=== PATIENT | male | born 1985 | race Hispanic/Latino ===

== ENCOUNTER 2025-06-16 17:10 | Emergency (ER) | payer OTHER, MEDICARE ==
[~2025-06-16] VITALS: Ht 157.5 cm; Wt 203.2 kg
[2025-06-16 17:35] LABS: IMMATURE GRANULOCYTE ABSOLUTE 0.03 K/uL (0-1); NUCLEATED RED BLOOD CELLS 0.0 % (0.0-0.19); PLATELET COUNT (AUTO) 171 K/uL (130-400); RED BLOOD CELL COUNT(AUTO) 5.45 MIL/uL (4.50-6.20); RED CELL DISTRIBUTION WIDTH 12.9 % (11.0-15.5); WHITE BLOOD COUNT (AUTO) 10.9 K/uL (4.8-10.8)
[2025-06-16 17:53] LABS: CREATINE KINASE, TOTAL 239.0 U/L (21-232); CREATININE 1.0 mg/dL (0.5-1.3); GLOMERULAR FILTR. RATE CALC 98.0 mL/min (>90); GLUCOSE,RANDOM 393.0 mg/dL (70-105); SODIUM SERUM 133.0 mmol/L (136-145); UREA NITROGEN, BLOOD 9.0 mg/dL (7-18)
[2025-06-16 18:54] LABS: ASPARTATE AMINOTRANSFERASE 25.0 U/L (10-37); TOTAL PROTEIN, SERUM 7.4 g/dL (6.0-8.3)
[2025-06-16] MEDS: 0.9%NACL 1000ML 1,638 ML IV ONE (18:57)
--- NOTE | 2025-06-16 19:12 | NUR ---
PT CARE ASSUMED AT THIS TIME
[2025-06-16] MEDS ORDERED: IOHEXOL 350 MG/ML 100ML INFUS..BTL IV ONE (19:19)
--- NOTE | 2025-06-16 20:05 | NUR ---
ALEJANDRA BIRD MADE AWARE OF BLOOD PRESSURE. PER TESTER/LIFT TRUCKER BLOOD PRESSURE MEDICATION IS TO BE HELD.
[2025-06-16 20:40] LABS: ADD UA MICROSCOPIC YES; APPEARANCE,URINE CLEAR (CLEAR); GLUCOSE, URINE (UA) >=1000 mg/dL (NEGATIVE); LEUKOCYTE ESTERASE ,URINE NEGATIVE Leu/uL (NEGATIVE); NITRATE,URINE NEGATIVE (NEGATIVE); OCCULT BLOOD,URINE NEGATIVE (NEGATIVE)
[2025-06-16 20:41] LABS: SQUAMOUS EPITHELIAL CELL,UR RARE /HPF (0-2)
[2025-06-16 20:43] LABS: AMPHET/METH SCREEN,URINE NEGATIVE (NEGATIVE); BARBITURATE SCREEN, URINE NEGATIVE (NEGATIVE); CANNABINOID SCREEN,URINE NEGATIVE (NEGATIVE); COCAINE SCREEN,URINE NEGATIVE (NEGATIVE)
--- NOTE | 2025-06-16 20:56 | HMCIMG ---
EXAM: CT Abdomen and Pelvis with IV contrast CLINICAL HISTORY: Right lower quadrant pain. TECHNIQUE: Postcontrast thin collimated axial CT images of the abdomen and pelvis were obtained with sagittal and coronal reformatted images also submitted. CT scan done according to ALARA (As Low As Reasonably Achievable). COMPARISON: None. FINDINGS: Unremarkable visualized lung parenchyma. There is no focal abnormality appreciated within the liver, gallbladder, pancreas, spleen, adrenals, or kidneys. Mild fatty liver. There is no obvious bowel wall thickening. Bowel loops are normal in caliber without evidence of obstruction or ileus. The appendix is normal. There is no abnormality within the urinary bladder. Unremarkable reproductive organs. The aorta is normal in caliber. No lymphadenopathy. No free fluid. There is a focal bony defect in the right iliac body. Mild multilevel spondylosis noted. Mild degenerative changes noted in the bilateral hip joints. IMPRESSIONS: There is a focal bony defect in the right iliac body; the evaluation is limited due to the patient's body habitus. Recommend a contrast-enhanced MRI of the pelvis for an optimal evaluation. Mild fatty liver. Unremarkable appendix. /[place]
--- NOTE | 2025-06-16 21:29 | NUR ---
BEDSIDE GLUCOSE CHECK DONE AT THIS TIME. ALEJANDRA BIRD MADE AWARE OF RESULT.
--- NOTE | 2025-06-16 21:46 | ERN ---
ED Note History of Present Illness Stated Complaint: LOWER ABD PAIN Chief Complaint: Abdominal Pain Time Seen by MD: 18:19 Time Seen by Midlevel: 18:19 Dictation: The patient is a 40-year-old male with a history of diabetes, hypertension who presents to the emergency department with complaints of lower abdominal pain onset yesterday around 2:00 a.m. patient denies any nausea or vomiting. Reports nonbloody diarrhea. Patient denies any fevers at home but had a low-grade fever in ER. Denies any upper respiratory symptoms. Allergies: Coded Allergies: Penicillins (Unverified Allergy, Unknown, 06/16/25) Past Medical History Past Medical History: Diabetes-Type II, High Cholesterol, Hypertension Surgical History: Other Surgical History Other: ABD SURGERY RN Note Reviewed/Agreed w/PFSH: Yes Review of System Dictation Constitutional: Negative for fever,chills, and weight loss Eyes: Negative for injury, pain,redness, and discharge ENT: Negative for injury,pain or swelling Cardiovascular: Negative for chest pain, palpitations, and edema Respiratory: Negative for shortness of breath, cough, and wheezing, Abdomen/GI: Negative for nausea, vomiting, and constipation positive for abdominal pain, diarrhea Back: Negative for injury and pain : Negative for injury, bleeding and discharge MS/Extremity: Negative for injury and deformity Skin: Negative for rash, and discoloration Neuro: Negative for headache, weakness, numbness, tingling, and seizure Psych: Negative for suicide ideation, homicidal ideation, and hallucinations Initial Vital Sign VS Vital Signs Date Time Temp Pulse Resp B/P (MAP) Pulse Ox O2 Delivery O2 Flow Rate FiO2 06/16/25 17:12 100.0 114 20 238/117 96 Room Air 0 06/16/25 18:13 21 Physical Exam Dictation Vital Signs reviewed General Appearance: Alert, oriented x 3, no acute distress, well developed, nourished. Obese Head and Face: non-traumatic. Eyes: PERRL, pink conjunctivas, eyelid no trauma, anterior chamber with arcus senilis. Ears: Pinnas intact and no signs of trauma or erythema ear canals clear and no discharge TM no erythema Nose: No discharge, no bleeding. Oropharynx: Mouth normal, tongue pink. pharynx clear,no erythema, tonsils no exudates, no abscesses noted, mucous membrane moist Neck: Supple, non-tender, no thyromegaly, no masses, no JVD, no bruits Breast:Deferred Chest:No tenderness, no crepitus, no paradoxical movement, no retractions Lungs:Clear, well-ventilated, symmetric, no rales, no wheezing, no rhonchi, no stridor, good breath sounds bilaterally Heart: Regular rate, regular rhythm, no murmur, no gallops Vascular: no peripheral edema, Abdomen: Soft, positive bowel sounds, nondistended, no guarding, Right lower quadrant tenderness, no rebound, no masses no hepatomegaly, no splenomegaly, no Ordoñez's sign, no hernias. Rectal: Deferred Genital: Deferred Neurological: Normal speech, motor function intact, sensory function intact Musculoskeletal: Neck nontender, full range of motion, back nontender, full range of motion, Extremities: nontender, full range of motion Skin: Color pink, dry, no turgor, no rash, no lacerations, no abrasions, no contusions. Lymphatic: Deferred Results (Laboratory/Radiology) Laboratory/Radiology Laboratory Tests Test 06/16/25 17:28 06/16/25 20:20 06/16/25 21:26 06/16/25 21:29 White Blood Count 10.9 K/uL (4.8-10.8) H Red Blood Count 5.45 MIL/uL (4.50-6.20) Hemoglobin 16.2 g/dL (14.0-18.0) Hematocrit 48.8 % (42-54) Mean Corpuscular Volume 89.5 fL (79-99) Mean Corpuscular Hemoglobin 29.7 pg (27.0-33.0) Mean Corpuscular Hemoglobin Concent 33.2 g/dL (32.0-36.0) Red Cell Distribution Width 12.9 % (11.0-15.5) Platelet Count 171 K/uL (130-400) Mean Platelet Volume 12.0 fL (7.5-10.5) H Immature Granulocyte % (Auto) 0.3 % (0-1) Neutrophils (%) (Auto) 75.4 % (40.0-77.0) Lymphocytes (%) (Auto) 14.5 % (21.0-51.0) L Monocytes (%) (Auto) 8.6 % (3.0-13.0) Eosinophils (%) (Auto) 0.7 % (0.0-8.0) Basophils (%) (Auto) 0.5 % (0.0-5.0) Neutrophils # (Auto) 8.3 K/uL (1.8-7.7) H Lymphocytes # (Auto) 1.6 K/uL (1.0-4.8) Monocytes # (Auto) 0.9 K/uL (0.1-1.0) Eosinophils # (Auto) 0.08 K/uL (0.00-0.70) Basophils # (Auto) 0.05 K/uL (0.00-0.20) Absolute Immature Granulocyte (auto 0.03 K/uL (0-1) Nucleated Red Blood Cells 0.0 % (0.0-0.19) Sodium Level 133 mmol/L (136-145) L Potassium Level 3.7 mmol/L (3.5-5.1) Chloride Level 96 mmol/L (101-111) L Carbon Dioxide Level 25 mmol/L (21-32) Blood Urea Nitrogen 9 mg/dL (7-18) Creatinine 1.0 mg/dL (0.5-1.3) Glomerular Filtration Rate Calc 98 mL/min (>90) Random Glucose 393 mg/dL (70-105) H Lactic Acid Level 2.6 mmol/L (0.8-2.5) H 1.9 mmol/L (0.8-2.5) Total Calcium 8.9 mg/dL (8.5-10.1) Total Bilirubin 0.6 mg/dL (0.2-1.0) Direct Bilirubin 0.2 mg/dL (0.0-0.3) Aspartate Amino Transf (AST/SGOT) 25 U/L (10-37) Alanine Aminotransferase (ALT/SGPT) 47 U/L (12-78) Alkaline Phosphatase 85 U/L (50-136) Total Creatine Kinase 239 U/L (21-232) H Troponin I High Sensitivity 21 ng/L (4-75) Total Protein 7.4 g/dL (6.0-8.3) Albumin 3.1 g/dL (3.5-5.0) L Lipase 23 U/L (16-77) Urine Color LIGHT-YELLOW (YELLOW) Urine Appearance CLEAR (CLEAR) Urine pH 5.5 (5.0-8.0) Urine Specific Craig 1.046 (1.001-1.031) Urine Protein NEGATIVE mg/dL (NEGATIVE) Urine Glucose (UA) >=1000 mg/dL (NEGATIVE) H Urine Ketones 20 mg/dL (NEGATIVE) H Urine Occult Blood NEGATIVE (NEGATIVE) Urine Nitrate NEGATIVE (NEGATIVE) Urine Bilirubin NEGATIVE mg/dL (NEGATIVE) Urine Urobilinogen 0.2 mg/dL (0.2-1.0) Urine Leukocyte Esterase NEGATIVE Gail/uL Urine RBC 0-1 /HPF (0-1) Urine WBC None /HPF (0-1) Urine Squamous Epithelial Cells RARE /HPF (0-2) Urine Bacteria None /HPF (None Seen) Urine Opiates Screen NEGATIVE (NEGATIVE) Urine Barbiturates Screen NEGATIVE (NEGATIVE) Urine Phencyclidine Screen NEGATIVE (NEGATIVE) Urine Amphetamines Screen NEGATIVE (NEGATIVE) Urine Benzodiazepines Screen NEGATIVE (NEGATIVE) Urine Cocaine Screen NEGATIVE (NEGATIVE) Urine Marijuana (THC) Screen NEGATIVE (NEGATIVE) Whole Blood Glucose 284 MG/DL (70-110) H REASON: rlq pain ORDERING PHYSICIAN: PELON MADRID PROCEDURE: ABD PEL W - CT ABDOMEN/PELVIS W/CONTRAST EXAM: CT Abdomen and Pelvis with IV contrast CLINICAL HISTORY: Right lower quadrant pain. TECHNIQUE: Postcontrast thin collimated axial CT images of the abdomen and pelvis were obtained with sagittal and coronal reformatted images also submitted. CT scan done according to ALARA (As Low As Reasonably Achievable). COMPARISON: None. FINDINGS: Unremarkable visualized lung parenchyma. There is no focal abnormality appreciated within the liver, gallbladder, pancreas, spleen, adrenals, or kidneys. Mild fatty liver. There is no obvious bowel wall thickening. Bowel loops are normal in caliber without evidence of obstruction or ileus. The appendix is normal. There is no abnormality within the urinary bladder. Unremarkable reproductive organs. The aorta is normal in caliber. No lymphadenopathy. No free fluid. There is a focal bony defect in the right iliac body. Mild multilevel spondylosis noted. Mild degenerative changes noted in the bilateral hip joints. IMPRESSIONS: There is a focal bony defect in the right iliac body; the evaluation is limited due to the patient's body habitus. Recommend a contrast-enhanced MRI of the pelvis for an optimal evaluation. Mild fatty liver. Unremarkable appendix. /[place] [facility] Reviewed?: Yes EKG: (+) rhythm (Sinus tachycardia) EKG Comment: Date:06/16/2025 Time:1715 Ventricular rate:114 MN interval:145 QRS duration:139 QT/QTc:363/500 EKG interpretation: Sinus tachycardia Reviewed by ED Attending no stemi ED Course ED Course Orders Procedure Category Date Status Time Iv Insertion CPOE 06/16/25 Transmitted 17:17 Pulse Ox(Continuous) RT 06/16/25 Transmitted 17:17 Vital Signs Per CPOE 06/16/25 Transmitted Routine 17:17 12 Lead Ekg Tracing- EKG 06/16/25 Logged Technical 17:17 Cbc With Differential LAB 06/16/25 Complete 17:17 Blood Cult LEO 06/16/25 In Process 17:17 Urinalysis Profile LAB 06/16/25 Complete 17:17 Culture Urine LEO 06/16/25 In Process 17:17 Creatine Kinase, Total LAB 06/16/25 Complete 17:17 Troponin I High LAB 06/16/25 Complete Sensitivity 17:17 Lactic Acid LAB 06/16/25 Complete 17:17 Basic Metabolic Panel LAB 06/16/25 Complete 17:17 12 Lead Ekg Tracing- EKG 06/16/25 Logged Technical 17:17 Ct Abdomen/Pelvis CT 06/16/25 Resulted W/Contrast 18:25 Lipase LAB 06/16/25 Complete 18:25 Acetaminophen 500mg PHA 06/16/25 Complete Tab (Tylenol 500mg T 18:30 0.9%Nacl 1000ml (Ns PHA 06/16/25 Complete 1000ml) 18:30 Ceftriaxone 1g Vial PHA 06/16/25 Complete (Rocephine 1g Inj) 18:30 Hepatic Function Panel LAB 06/16/25 Complete 18:25 Ondansetron 4mg Inj PHA 06/16/25 Complete (Zofran 4mg Inj) 18:30 Morphine 4mg Syg PHA 06/16/25 Complete (Morphine 4mg Syg) 18:30 Drug Screen Urine LAB 06/16/25 Complete 18:29 Hydralazine 20mg Inj PHA 06/16/25 Complete (Apresoline 20mg In 18:30 Iohexol (Omnipaque) PHA 06/16/25 Complete 19:19 Lactic Acid (Removed) LAB 06/16/25 Complete 20:40 Bedside Glucose CPOE 06/16/25 Transmitted Fingerstick 21:27 Current Medications Medications (Trade) Dose Ordered Sig/Darren Route PRN Reason Start Time Stop Time Status Last Admin Dose Admin Acetaminophen (TYLenol 500MG TAB) 1,000 mg ONCE ONCE PO 06/16/25 18:30 06/16/25 18:33 DC 06/16/25 18:56 Ceftriaxone Sodium (ROCEphine 1G INJ) 1 gm ONCE ONCE IVPB 06/16/25 18:30 06/16/25 18:46 DC 06/16/25 18:56 Hydralazine HCl (APRESOLine 20MG INJ) 10 mg ONCE ONCE IV 06/16/25 18:30 06/16/25 18:34 DC Iohexol (Omnipaque) 35,000 mg STK-MED ONCE IV 06/16/25 19:19 06/16/25 19:20 DC Morphine Sulfate (morPHINE 4MG SYG) 4 mg ONCE ONCE IVP 06/16/25 18:30 06/16/25 18:33 DC Ondansetron HCl (zoFRAN 4MG INJ) 4 mg ONCE ONCE IVP 06/16/25 18:30 06/16/25 18:33 DC Sodium Chloride 1,638 ml @ 546 mls/hr ONCE ONCE IV 06/16/25 18:30 06/16/25 21:29 DC 06/16/25 18:57 Vital Signs Date Time Temp Pulse Resp B/P (MAP) Pulse Ox O2 Delivery O2 Flow Rate FiO2 06/16/25 20:05 99.0 100 16 164/85 98 Room Air* 0 06/16/25 18:13 99.1 111 14 162/91 98 Room Air* 0 06/16/25 17:12 100.0 114 20 238/117 96 Room Air 0 Medical Decision Making MDM The patient is a 40-year-old male with a history of diabetes, hypertension who presents to the emergency department with complaints of lower abdominal pain onset yesterday around 2:00 a.m. patient denies any nausea or vomiting. Reports nonbloody diarrhea. Patient denies any fevers at home but had a low-grade fever in ER. Denies any upper respiratory symptoms. CBC showed mild leukocytosis, no anemia, chemistry showed mild hyponatremia, hypochloremia, elevated glucose level. No DKA, lactic acid of 2.6 negative lipase, negative troponin, negative liver enzymes. Blood glucose improved after fluids. Lactic acid trending down Toxicology negative, urinalysis negative for leukocyte esterase, nitrites. CT abdomen and pelvis showed no mouth fatty liver, unremarkable appendix, focal bony deficits of right iliac body. Patient with no pain, ambulatory. Patient reports no longer having any abdominal pain. On physical exam patient is in no acute distress, nontoxic appearance, stable vital signs. Patient will be discharged to follow up with PCP. Differential diagnosis: Appendicitis, gastroenteritis, dehydration, electrolyte imbalance, sepsis Need for hospitalization: Patient does not meet criteria for hospitalization. There are no social concerns with this patient. DX & DISP Disposition: Discharge Departure Impression: Primary Impression: Gastroenteritis Additional Impressions: Uncontrolled diabetes mellitus, Uncontrolled hypertension Condition: Stable Additional Instructions: Your labs were except your blood glucose was high in your slightly dehydrated. You received IV fluids. Your CT scan did not show any evidence of appendicitis. Your symptoms are probably related to a viral stomach infection. Tinea oral hydration at home. You may take Tylenol as needed or near fevers. Your primary doctor in 1-2 days. If anything worsens please return to ER. FOLLOW-UP WITH PRIMARY CARE PROVIDER IN 1 TO 2 DAYS. TAKE MEDICATIONS DIRECTED HERE IN THE EMERGENCY ROOM. OKAY TO CONTINUE HOME MEDICATIONS UNLESS OTHERWISE DISCUSSED DURING YOUR VISIT IN THE EMERGENCY ROOM TODAY. RETURN TO YOUR NEAREST EMERGENCY ROOM IF SYMPTOMS WORSEN OR IF THERE IS NO IMPROVEMENT. CALL 911 IF YOU NEED IMMEDIATE ASSISTANCE. TAKE TYLENOL [id number] NEEDED AND IF NO CONTRAINDICATIONS ARE PRESENT. INCREASE ORAL HYDRATION. A W OUND CULTURE OR URINE CULTURE WAS ORDERED HERE IN THE EMERGENCY ROOM DEPARTMENT PLEASE FOLLOW-UP WITH PRIMARY CARE PROVIDER AND ADVISE THEM TO GET REPEAT PORTS FROM OUR FACILITY. IF YOU HAD ANY DYLAN WRAP/SPLINTS THAT WERE APPLIED HERE, PLEASE DO NOT REMOVE THEM UNTIL YOU SEE YOUR PRIMARY CARE OR SPECIALTY. Referrals: SELF,REFERRAL (PCP) Time of Disposition: 21:53 I have reviewed the case, and I agree with, Diagnosis and Plan PELON MADRID Jun 16, 2025 21:46
[2025-06-16 22:34] VITALS: BP 143/72; PULSE 98; RESP 16; TEMP 98.1; O2SAT 98
--- NOTE | 2025-06-17 07:07 | EKG ---
[facility] Test Date: 2025-06-16 Test Time: 17:15:07 Pat Name: TYESHA OWENS Department: ED Room: Gender: M Mat Puncher: [facility] : 1985 Requested By: ELVIS ROACH Order Number: [id number] Reading MD: Bertin Stephens Measurements Intervals [place] Rate: 114 P: 41 OK: 145 QRS: -81 QRSD: 139 T: 72 QT: 363 QTc: 500 Interpretive Statements Sinus tachycardia RBBB and LAFB ST elevation secondary to IVCD No previous ECG available for comparison Electronically Signed On 06-17-2025 17:23:45 CDT by Bertin Stephens Please click the below link to view image of tracing.
== END 2025-06-16 22:43 | disposition home or self-care (01) ==
LOC: EDH 17:10
DX: K52.9 Noninfective gastroenteritis and colitis, unspecified (principal); E11.65 Type 2 diabetes mellitus with hyperglycemia; I10 Essential (primary) hypertension
CPT/HCPCS: 99285; 74177; 96365; 96366; 82550; 80076; 84484; 80048; 80305; 83690; 85025; 87040 ×2; 87086; 82948; 83605 ×2; 36415; 93005; 81001; J7030; J0696; Q9967; J2405